=== PATIENT | male | born 1975 | race Caucasian/White ===

== ENCOUNTER 2017-12-31 13:24 | Emergency (ER) | payer OTHER ==
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
[2017-12-31] MEDS ORDERED: Dexamethasone IV* 4 MG/ML 1 ML (4 MG) IM ONE (14:53)
[2017-12-31] MEDS ORDERED: Ketorolac INJ* 60 MG/2 ML VIAL IM ONE (14:53)
[2017-12-31] MEDS ORDERED: Orphenadrine Citrate IV* 30 MG/ML 2 ML VIAL IM ONE (14:53)
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
[2017-12-31 17:10] VITALS: BP 153/105
== END 2017-12-31 17:00 | disposition home or self-care (01) ==
LOC: ED 13:24
DX: M54.9 Dorsalgia, unspecified (principal); F17.210 Nicotine dependence, cigarettes, uncomplicated; V89.2XXA Person injured in unspecified motor-vehicle accident, traffic, initial encounter; Y92.9 Unspecified place or not applicable
CPT/HCPCS: 72070; 72100; 96372; 99282; J1100; J1885; J2360